=== PATIENT | female | born 1990 | race African-American/Black ===

== ENCOUNTER 2016-06-17 16:04 | Emergency (ER) | payer OTHER ==
[~2016-06-17 16:04] MED LIST: ADVI200C5 PO; MILKSUS PO
[2016-06-17] MEDS ORDERED: METHOCARBAMOL 500 MG TAB As Ordered ONE (16:22)
[2016-06-17] MEDS ORDERED: predniSONE 20 MG TAB As Ordered ONE (16:22)
[2016-06-17] MEDS ORDERED: ACETAMINOPH W/CODEINE #3 TAB UD As Ordered ONE (16:22)
--- NOTE | 2016-06-17 17:05 | REP ---
Clinical: Pain and swelling. Comparison: 01/19/2016 . Technique: AP, lateral, bilateral oblique, and coned-down views. Findings: Alignment and lordosis is maintained. The vertebral bodies including transverse process and spinous processes are intact and normal. There is no evidence for acute fracture / compression injury or subluxation. No evidence for spondylolysis or spondylolisthesis. No significant degenerative change is noted. Impression: Normal lumbosacral spine radiograph series. Signed by Yamil Anderson MD 06/17/2016 04:57 P
--- NOTE | 2016-06-17 17:45 | EDDOCDS ---
Physician Documentation [facility] Name: Bella Hudson Age: 26 yrs Sex: Female : 1990 Arrival Date: 06/17/2016 Time: 16:04 Bed PR Private MD: Trevor Dorsey G Disposition: 06/17/16 17:22 Discharged to Home/Self Care. Impression: Low back pain, Sciatica, left side. - Condition is Stable. - Discharge Instructions: Back Pain, Adult, Sciatica. - Prescriptions for Robaxin 500 mg Oral Tablet - take 2 tablet by ORAL route every 6 hours As needed; 40 tablet. Tylenol- Codeine #3 300-30 mg Oral Tablet - take 2 tablets by ORAL route every [address] YU MDD: 4 tabs; 20 tablet. Prednisone 20 mg Oral Tablet - take 2 tablet by ORAL route once daily for 5 days; 10 tablet. - Medication Reconciliation, Local Pharmacy Hours, Work Release Form - 4 day form. - Follow up: Trevor Dorsey; When: 2 - 3 days; Reason: Recheck today's complaints, Continuance of care. - Problem is new. - Symptoms have improved. Historical: - Allergies: no known allergies; - Home Meds: 1. Lexapro 20 mg Oral tab 1 tab once daily 2. baclofen 10 mg Oral tab 1 tab 3 times per day 3. Lidoderm 5 % Topical ptmd 1 patch once daily 4. trazodone 50 mg Oral tab 1 tab 3 times per day as needed 5. Flonase 50 mcg/actuation Nasal spsn 1 spray 2 times per day 6. Adderall XR 15 mg Oral cp24 1 cap once daily 7. Vitamin D 5000 po weekly on Sunday 01817 units weekly 8. Gabapentin Unknown Oral 3 times per day - PMHx: ADHD; Anemia; Anxiety; Depression; Disc Herniation L3,4,5; Enlarged Thyroid; - PSHx: Tubal ligation (October 06, 2013); - Social history: Smoking status: Patient uses tobacco products, light tobacco smoker. No barriers to communication noted, The patient speaks fluent Sami, Speaks appropriately for age. - Family history: Not pertinent. - : The pt / caregiver states he / she is not on anticoagulants. Home medication list is obtained from the patient. - Exposure Risk Screening:: None identified. 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 5 in. (165.10 cm); Pain 10/10; 17:42 BP 109 / 65; Pulse 76; Resp 16; Pulse Ox 100% on R/A; Pain 8/10; mlb1 16:06 Body Mass Index 25.79 (70.31 kg, 165.10 cm) cmb MDM: 16:19 Acetaminophen-Codeine 300 mg-30 mg 2 tabs PO once ordered. ck7 16:19 Methocarbamol 1 grams PO once ordered. ck7 16:19 predniSONE 40 mg PO once; administer with food or milk ordered. ck7 16:19 UCG by Nursing ordered. ck7 16:20 Spine. Lumbosacral, Complete Ordered. EDMS 16:20 UA Ordered. EDMS 17:05 UA Reviewed. ck7 17:18 Spine. Lumbosacral, Complete Reviewed. ck7 17:32 Financial registration complete. zo 17:39 [facility] Payment Agreement was scanned into [employer] and attached to record. [email or web address] Point of Care Testing: Urine : 16:29 hCG Reading: Negative; Control Reading: Positive; sew Ranges: Administered Medications: 16:30 Drug: Acetaminophen-Codeine 2 tabs [acetaminophen 300 mg-codeine 30 mg tablet (2 tabs)] mlb1 Route: PO; 16:30 Drug: Methocarbamol 1 grams [methocarbamol 500 mg tablet (2 tabs)] Route: PO; mlb1 16:30 Drug: predniSONE 40 mg [prednisone 20 mg tablet (2 tabs)] Route: PO; mlb1 Signatures: Dispatcher [id number] EDMS Osbaldo Mayer RN RN mlb1 Castro Francis Christopher, BERNADINE-C RPA-CckSaima Jean, Reg Reg [email or web address] The chart was reviewed and I authenticate all verbal orders and agree with the evaluation and treatment provided.Attachments: 17:39 [facility] Payment Agreement [email or web address] MTDD
--- NOTE | 2016-06-17 17:45 | EDDOCDS ---
Nurse's Notes [facility] Name: Bella Hudson Age: 26 yrs Sex: Female : 1990 Arrival Date: 06/17/2016 Time: 16:04 Bed PR Private MD: Trevor Dorsey G Diagnosis: Low back pain;Sciatica, left side Presentation: 06/17 16:07 Presenting complaint: Patient states: Low back pain radiating to left leg reports mlb1 tingling in toes and nausea states pain began today worse after getting out of shower this pm. Adult Sepsis Screening: The patient does not have new or worsening altered mentation. Patient's respiratory rate is less than 22. Systolic blood pressure is greater than 100. Patient has a qSOFA score of 0- Negative Sepsis Screen. Suicide/Homicide risk assessment- the patient denies having any suicidal and/or homicidal ideations and does not present with any other emotional, behavioral or mental health complaints. 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 Transition of care: patient was not received from another setting of care. 16:07 Acuity: ANN Level 4 mlb1 16:07 Method Of Arrival: Walkin/Carried/Asstd mlb1 Triage Assessment: 16:11 General: Appears uncomfortable, Behavior is appropriate for age, cooperative. Pain: mlb1 Location: low back area Pain currently is 10 out of 10 on a pain scale. Pain radiates to left leg. HIV screening NA for this visit Offered previously. 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 Lexapro 20 mg Oral tab 1 tab once daily 2. baclofen 10 mg Oral tab 1 tab 3 times per day 3. Lidoderm 5 % Topical ptmd 1 patch once daily 4. trazodone 50 mg Oral tab 1 tab 3 times per day as needed 5. Flonase 50 mcg/actuation Nasal spsn 1 spray 2 times per day 6. Adderall XR 15 mg Oral cp24 1 cap once daily 7. Vitamin D 5000 po weekly on Sunday 55240 units weekly 8. Gabapentin Unknown Oral 3 times per day - PMHx: ADHD; Anemia; Anxiety; Depression; Disc Herniation L3,4,5; Enlarged Thyroid; - PSHx: Tubal ligation (October 06, 2013); - Social history: Smoking status: Patient uses tobacco products, light tobacco smoker. No barriers to communication noted, The patient speaks fluent Mosotho, Speaks appropriately for age. - Family history: Not pertinent. - : The pt / caregiver states he / she is not on anticoagulants. Home medication list is obtained from the patient. - Exposure Risk Screening:: None identified. Screenin:37 Screening information is obtained from the patient. Fall risk: No risks identified. mlb1 Assistance ADL's: requires no assistance with activities of daily living. Abuse/DV Screen: The patient / caregiver reports he/she is: not in a situation that causes fear, pain or injury. Nutritional screening: No deficits noted. Advance Directives: Currently, there is no health care proxy. home support is adequate. Assessment: 17:36 General: Appears in no apparent distress, Behavior is appropriate for age, cooperative. mlb1 Pain: Location: low back area Pain currently is 8 out of 10 on a pain scale. Pain radiates to left leg. Respiratory: No deficits noted. Musculoskeletal: Range of motion intact in all extremities. Vital Signs: 16:06 BP 127 / 73; Pulse 97; Resp 16; Temp 98.1(O); Pulse Ox 100% ; Weight 70.31 kg; Height 5 cmb ft. 5 in. (165.10 cm); Pain 10/10; 17:42 BP 109 / 65; Pulse 76; Resp 16; Pulse Ox 100% on R/A; Pain 8/10; mlb1 16:06 Body Mass Index 25.79 (70.31 kg, 165.10 cm) b Vitals: 16:06 Log In Time: June 17, 2016 at 16:04. b ED Course: 16:05 Patient visited by Mary Boles. cmb 16:05 Patient moved to Waiting cmb 16:06 Trevor Dorsey is Private Physician. cmb 16:07 Patient moved to Pre RCE cmb 16:08 Triage Initiated mlb1 16:11 Patient visited by Osbaldo Mayer RN. mlb1 16:11 Patient moved to Triage 2 mlb1 16:12 [facility] ck7 16:12 Gio Dodge MD is Attending Physician. ck7 16:12 Patient visited by Naun Bains RPA-C. ck7 16:28 UA Sent. sew 16:29 Patient visited by Florina Carvalho. sew 16:29 Patient moved to TR2 sew 17:05 Patient visited by Naun Bains RPA-C. ck7 17:14 Spine. Lumbosacral, Complete Returned. EDMS 17:21 Trevor Dorsey is Referral Physician. ck7 17:27 Patient moved to mlb1 17:39 [facility] Payment Agreement was scanned into [employer] and attached to record. [email or web address] 17:40 No IV's were initiated during this patient's visit. No procedures done that require mlb1 assistance. 17:42 The patient / caregiver is instructed regarding the plan of care and ED course. mlb1 17:45 Patient visited by Osbaldo Mayer RN. mlb1 Administered Medications: 16:30 Drug: Acetaminophen-Codeine 2 tabs [acetaminophen 300 mg-codeine 30 mg tablet (2 tabs)] mlb1 Route: PO; 16:30 Drug: Methocarbamol 1 grams [methocarbamol 500 mg tablet (2 tabs)] Route: PO; mlb1 16:30 Drug: predniSONE 40 mg [prednisone 20 mg tablet (2 tabs)] Route: PO; mlb1 Point of Care Testing: Urine : 16:29 hCG Reading: Negative; Control Reading: Positive; sew Ranges: Order Results: Lab Order: UA; SPEC'M 06/17/16 16:25 Test: APPEARANCE, URINE; Value: HAZY; Range: CLEAR; Status: F Test: COLOR, URINE; Value: YELLOW; Range: YELLOW; Status: F Test: PH,URINE; Value: 5.0; Range: 5.0-9.0; Units: UNITS; Status: F Test: SPECIFIC GRAVITY URINE AUTO; Value: 1.032; Range: 1.002-1.035; Status: F Test: PROTEIN, URINE AUTO; Value: NEGATIVE; Range: NEGATIVE; Units: mg/dL; Status: F Test: GLUCOSE, URINE (UA) AUTO; Value: NEGATIVE; Range: NEGATIVE; Units: mg/dL; Status: F Test: KETONE, URINE AUTO; Value: TRACE; Range: NEGATIVE; Abnormal: Above high normal; Units: mg/dL; Status: F Test: UROBILINOGEN, URINE AUTO; Value: 0.2; Range: 0.0-2.0; Units: mg/dL; Status: F Test: BILIRUBIN, URINE AUTO; Value: NEGATIVE; Range: NEGATIVE; Status: F Test: NITRITE, URINE AUTO; Value: NEGATIVE; Range: NEGATIVE; Status: F Test: LEUKOCYTE ESTERASE, URINE AUTO; Value: 2+; Range: NEGATIVE; Abnormal: Above high normal; Status: F Test: BLOOD, URINE BLOOD; Value: NEGATIVE; Range: NEGATIVE; Status: F Test: WBC, URINE AUTO; Value: 5; Range: 0-3; Abnormal: Above high normal; Units: /HPF; Status: F Test: RBC, URINE AUTO; Value: 2; Range: 0-3; Units: /HPF; Status: F Test: BACTERIA, URINE AUTO; Value: NEGATIVE; Range: NEGATIVE; Status: F Test: SQUAMOUS EPITHELIAL CELL UR AU; Value: 4; Range: 0-6; Units: /HPF; Status: F Test: MUCUS, URINE; Value: LARGE; Range: NEGATIVE; Status: F Test: HYALINE CAST, URINE AUTO; Value: 0; Range: 0-1; Units: /LPF; Status: F Radiology Order: Spine. Lumbosacral, Complete Test: Spine. Lumbosacral, Complete REASON FOR EXAMINATION: Deformity/Swelling; Clinical: Pain and swelling.; ; Comparison: 01/19/2016 .; ; Technique: AP, lateral, bilateral oblique, and coned-down views.; ; Findings: Alignment and lordosis is maintained. The vertebral bodies including; transverse process and spinous processes are intact and normal. There is no; evidence for acute fracture / compression injury or subluxation. No evidence for; spondylolysis or spondylolisthesis. No significant degenerative change is; noted.; ; Impression:; Normal lumbosacral spine radiograph series.; ; ; Signed by; Yamil Anderson MD 06/17/2016 04:57 P; Outcome: 17:22 Discharge ordered by Provider. ck7 17:40 Discharge Assessment: Patient awake, alert and oriented x 3. No cognitive and/or mlb1 functional deficits noted. Patient verbalized understanding of disposition instructions. patient administered narcotics - no. Discharge Assessment: patient administered narcotics - yes. Pt provided with safe discharge. The following High Risk Discharge criteria are identified: None. Discharged to home ambulatory. Condition: good. Discharge instructions given to patient, Instructed on discharge instructions, follow up and referral plans. medication usage, no driving heavy equipment, Demonstrated understanding of instructions, medications, Pt was receptive of discharge instructions/ teaching. Prescriptions given X 3, Work note provided to patient. No special radiology studies were completed. Property sent home with patient. 17:45 Patient left the ED. mlb1 Signatures: Dispatcher [employer] EDWV Osbaldo Mayer RN RN mlb1 Mary Boles Christopher, RPA-C RPA-Cck7 Deven, Saima Kitchen, Reg Reg [email or web address] MTDD
--- NOTE | 2016-06-19 18:46 | EDDOCDS ---
Physician Documentation [facility] Name: Bella Hudson Age: 26 yrs Sex: Female : 1990 Arrival Date: 06/17/2016 Time: 16:04 Bed PR Private MD: Trevor Dorsey G Disposition: 06/17/16 17:22 Discharged to Home/Self Care. Impression: Low back pain, Sciatica, left side. - Condition is Stable. - Discharge Instructions: Back Pain, Adult, Sciatica. - Prescriptions for Robaxin 500 mg Oral Tablet - take 2 tablet by ORAL route every 6 hours As needed; 40 tablet. Tylenol- Codeine #3 300-30 mg Oral Tablet - take 2 tablets by ORAL route every [address] YU MDD: 4 tabs; 20 tablet. Prednisone 20 mg Oral Tablet - take 2 tablet by ORAL route once daily for 5 days; 10 tablet. - Medication Reconciliation, Local Pharmacy Hours, Work Release Form - 4 day form. - Follow up: Trevor Dorsey; When: 2 - 3 days; Reason: Recheck today's complaints, Continuance of care. - Problem is new. - Symptoms have improved. Historical: - Allergies: no known allergies; - Home Meds: 1. Lexapro 20 mg Oral tab 1 tab once daily 2. baclofen 10 mg Oral tab 1 tab 3 times per day 3. Lidoderm 5 % Topical ptmd 1 patch once daily 4. trazodone 50 mg Oral tab 1 tab 3 times per day as needed 5. Flonase 50 mcg/actuation Nasal spsn 1 spray 2 times per day 6. Adderall XR 15 mg Oral cp24 1 cap once daily 7. Vitamin D 5000 po weekly on Sunday 86703 units weekly 8. Gabapentin Unknown Oral 3 times per day - PMHx: ADHD; Anemia; Anxiety; Depression; Disc Herniation L3,4,5; Enlarged Thyroid; - PSHx: Tubal ligation (October 06, 2013); - Social history: Smoking status: Patient uses tobacco products, light tobacco smoker. No barriers to communication noted, The patient speaks fluent Portuguese, Speaks appropriately for age. - Family history: Not pertinent. - : The pt / caregiver states he / she is not on anticoagulants. Home medication list is obtained from the patient. - Exposure Risk Screening:: None identified. 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 5 in. (165.10 cm); Pain 10/10; 17:42 BP 109 / 65; Pulse 76; Resp 16; Pulse Ox 100% on R/A; Pain 8/10; mlb1 16:06 Body Mass Index 25.79 (70.31 kg, 165.10 cm) cmb MDM: 16:19 Acetaminophen-Codeine 300 mg-30 mg 2 tabs PO once ordered. ck7 16:19 Methocarbamol 1 grams PO once ordered. ck7 16:19 predniSONE 40 mg PO once; administer with food or milk ordered. ck7 16:19 UCG by Nursing ordered. ck7 16:20 Spine. Lumbosacral, Complete Ordered. EDMS 16:20 UA Ordered. EDMS 17:05 UA Reviewed. ck7 17:18 Spine. Lumbosacral, Complete Reviewed. ck7 17:32 Financial registration complete. zo 17:39 [facility] Payment Agreement was scanned into [employer] and attached to record. [email or web address] 06/18 08:53 T-Sheet-- Draft Copy was scanned into [employer] and attached to record. [facility] Point of Care Testing: Urine : 06/17 16:29 hCG Reading: Negative; Control Reading: Positive; sew Ranges: Administered Medications: 16:30 Drug: Acetaminophen-Codeine 2 tabs [acetaminophen 300 mg-codeine 30 mg tablet (2 tabs)] mlb1 Route: PO; 16:30 Drug: Methocarbamol 1 grams [methocarbamol 500 mg tablet (2 tabs)] Route: PO; mlb1 16:30 Drug: predniSONE 40 mg [prednisone 20 mg tablet (2 tabs)] Route: PO; mlb1 Signatures: Dispatcher [employer] EDOsbaldo Carrillo RN RN mlb1 Castro Francis Christopher, RPA-C RPA-Cck7 Saima Vela, Reg Reg [email or web address] [facility] The chart was reviewed and I authenticate all verbal orders and agree with the evaluation and treatment provided.Attachments: 17:39 [facility] Payment Agreement [email or web address] 06/18 08:53 T-Sheet-- Draft Copy [facility] Chart Complete MTDD
--- NOTE | 2016-06-19 18:46 | EDDOCDS ---
Nurse's Notes [facility] Name: Bella Hudson Age: 26 yrs Sex: Female : 1990 Arrival Date: 06/17/2016 Time: 16:04 Bed PR Private MD: Trevor Dorsey G Diagnosis: Low back pain;Sciatica, left side Presentation: 06/17 16:07 Presenting complaint: Patient states: Low back pain radiating to left leg reports mlb1 tingling in toes and nausea states pain began today worse after getting out of shower this pm. Adult Sepsis Screening: The patient does not have new or worsening altered mentation. Patient's respiratory rate is less than 22. Systolic blood pressure is greater than 100. Patient has a qSOFA score of 0- Negative Sepsis Screen. Suicide/Homicide risk assessment- the patient denies having any suicidal and/or homicidal ideations and does not present with any other emotional, behavioral or mental health complaints. 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 Transition of care: patient was not received from another setting of care. 16:07 Acuity: ANN Level 4 mlb1 16:07 Method Of Arrival: Walkin/Carried/Asstd mlb1 Triage Assessment: 16:11 General: Appears uncomfortable, Behavior is appropriate for age, cooperative. Pain: mlb1 Location: low back area Pain currently is 10 out of 10 on a pain scale. Pain radiates to left leg. HIV screening NA for this visit Offered previously. 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 Lexapro 20 mg Oral tab 1 tab once daily 2. baclofen 10 mg Oral tab 1 tab 3 times per day 3. Lidoderm 5 % Topical ptmd 1 patch once daily 4. trazodone 50 mg Oral tab 1 tab 3 times per day as needed 5. Flonase 50 mcg/actuation Nasal spsn 1 spray 2 times per day 6. Adderall XR 15 mg Oral cp24 1 cap once daily 7. Vitamin D 5000 po weekly on Sunday 75598 units weekly 8. Gabapentin Unknown Oral 3 times per day - PMHx: ADHD; Anemia; Anxiety; Depression; Disc Herniation L3,4,5; Enlarged Thyroid; - PSHx: Tubal ligation (October 06, 2013); - Social history: Smoking status: Patient uses tobacco products, light tobacco smoker. No barriers to communication noted, The patient speaks fluent Welsh, Speaks appropriately for age. - Family history: Not pertinent. - : The pt / caregiver states he / she is not on anticoagulants. Home medication list is obtained from the patient. - Exposure Risk Screening:: None identified. Screenin:37 Screening information is obtained from the patient. Fall risk: No risks identified. mlb1 Assistance ADL's: requires no assistance with activities of daily living. Abuse/DV Screen: The patient / caregiver reports he/she is: not in a situation that causes fear, pain or injury. Nutritional screening: No deficits noted. Advance Directives: Currently, there is no health care proxy. home support is adequate. Assessment: 17:36 General: Appears in no apparent distress, Behavior is appropriate for age, cooperative. mlb1 Pain: Location: low back area Pain currently is 8 out of 10 on a pain scale. Pain radiates to left leg. Respiratory: No deficits noted. Musculoskeletal: Range of motion intact in all extremities. Vital Signs: 16:06 BP 127 / 73; Pulse 97; Resp 16; Temp 98.1(O); Pulse Ox 100% ; Weight 70.31 kg; Height 5 cmb ft. 5 in. (165.10 cm); Pain 10/10; 17:42 BP 109 / 65; Pulse 76; Resp 16; Pulse Ox 100% on R/A; Pain 8/10; mlb1 16:06 Body Mass Index 25.79 (70.31 kg, 165.10 cm) b Vitals: 16:06 Log In Time: June 17, 2016 at 16:04. b ED Course: 16:05 Patient visited by Mary Boles. cmb 16:05 Patient moved to Waiting cmb 16:06 Trevor Dorsey is Private Physician. cmb 16:07 Patient moved to Pre RCE cmb 16:08 Triage Initiated mlb1 16:11 Patient visited by Osbaldo Mayer RN. mlb1 16:11 Patient moved to Triage 2 mlb1 16:12 [facility] ck7 16:12 Gio Dodge MD is Attending Physician. ck7 16:12 Patient visited by Naun Bains RPA-C. ck7 16:28 UA Sent. sew 16:29 Patient visited by Florina Carvalho. sew 16:29 Patient moved to TR2 sew 17:05 Patient visited by Naun Bains RPA-C. ck7 17:14 Spine. Lumbosacral, Complete Returned. EDMS 17:21 Trevor Dorsey is Referral Physician. ck7 17:27 Patient moved to mlb1 17:39 [facility] [place] Agreement was scanned into [employer] and attached to record. [email or web address] 17:40 No IV's were initiated during this patient's visit. No procedures done that require mlb1 assistance. 17:42 The patient / caregiver is instructed regarding the plan of care and ED course. mlb1 17:45 Patient visited by Osbaldo Mayer RN. mlb1 06/18 08:53 T-Sheet-- Draft Copy was scanned into [employer] and attached to record. [facility] Administered Medications: 06/17 16:30 Drug: Acetaminophen-Codeine 2 tabs [acetaminophen 300 mg-codeine 30 mg tablet (2 tabs)] mlb1 Route: PO; 16:30 Drug: Methocarbamol 1 grams [methocarbamol 500 mg tablet (2 tabs)] Route: PO; mlb1 16:30 Drug: predniSONE 40 mg [prednisone 20 mg tablet (2 tabs)] Route: PO; mlb1 Point of Care Testing: Urine : 16:29 hCG Reading: Negative; Control Reading: Positive; sew Ranges: Order Results: Lab Order: UA; SPEC'M 06/17/16 16:25 Test: APPEARANCE, URINE; Value: HAZY; Range: CLEAR; Status: F Test: COLOR, URINE; Value: YELLOW; Range: YELLOW; Status: F Test: PH,URINE; Value: 5.0; Range: 5.0-9.0; Units: UNITS; Status: F Test: SPECIFIC GRAVITY URINE AUTO; Value: 1.032; Range: 1.002-1.035; Status: F Test: PROTEIN, URINE AUTO; Value: NEGATIVE; Range: NEGATIVE; Units: mg/dL; Status: F Test: GLUCOSE, URINE (UA) AUTO; Value: NEGATIVE; Range: NEGATIVE; Units: mg/dL; Status: F Test: KETONE, URINE AUTO; Value: TRACE; Range: NEGATIVE; Abnormal: Above high normal; Units: mg/dL; Status: F Test: UROBILINOGEN, URINE AUTO; Value: 0.2; Range: 0.0-2.0; Units: mg/dL; Status: F Test: BILIRUBIN, URINE AUTO; Value: NEGATIVE; Range: NEGATIVE; Status: F Test: NITRITE, URINE AUTO; Value: NEGATIVE; Range: NEGATIVE; Status: F Test: LEUKOCYTE ESTERASE, URINE AUTO; Value: 2+; Range: NEGATIVE; Abnormal: Above high normal; Status: F Test: BLOOD, URINE BLOOD; Value: NEGATIVE; Range: NEGATIVE; Status: F Test: WBC, URINE AUTO; Value: 5; Range: 0-3; Abnormal: Above high normal; Units: /HPF; Status: F Test: RBC, URINE AUTO; Value: 2; Range: 0-3; Units: /HPF; Status: F Test: BACTERIA, URINE AUTO; Value: NEGATIVE; Range: NEGATIVE; Status: F Test: SQUAMOUS EPITHELIAL CELL UR AU; Value: 4; Range: 0-6; Units: /HPF; Status: F Test: MUCUS, URINE; Value: LARGE; Range: NEGATIVE; Status: F Test: HYALINE CAST, URINE AUTO; Value: 0; Range: 0-1; Units: /LPF; Status: F Radiology Order: Spine. Lumbosacral, Complete Test: Spine. Lumbosacral, Complete REASON FOR EXAMINATION: Deformity/Swelling; Clinical: Pain and swelling.; ; Comparison: 01/19/2016 .; ; Technique: AP, lateral, bilateral oblique, and coned-down views.; ; Findings: Alignment and lordosis is maintained. The vertebral bodies including; transverse process and spinous processes are intact and normal. There is no; evidence for acute fracture / compression injury or subluxation. No evidence for; spondylolysis or spondylolisthesis. No significant degenerative change is; noted.; ; Impression:; Normal lumbosacral spine radiograph series.; ; ; Signed by; Yamil Anderson MD 06/17/2016 04:57 P; Outcome: 17:22 Discharge ordered by Provider. ck7 17:40 Discharge Assessment: Patient awake, alert and oriented x 3. No cognitive and/or mlb1 functional deficits noted. Patient verbalized understanding of disposition instructions. patient administered narcotics - no. Discharge Assessment: patient administered narcotics - yes. Pt provided with safe discharge. The following High Risk Discharge criteria are identified: None. Discharged to home ambulatory. Condition: good. Discharge instructions given to patient, Instructed on discharge instructions, follow up and referral plans. medication usage, no driving heavy equipment, Demonstrated understanding of instructions, medications, Pt was receptive of discharge instructions/ teaching. Prescriptions given X 3, Work note provided to patient. No special radiology studies were completed. Property sent home with patient. 17:45 Patient left the ED. mlb1 Signatures: Dispatcher [employer] EDMN Osbaldo Mayer RN RN mlb1 Mary Boles Christopher, RPA-C RPA-Cck7 Florina Carvalho Kimberly, Reg Reg [email or web address] Florina Luis Chart Complete MTDD
--- NOTE | 2016-06-19 18:46 | EDDOCDS ---
Physician Documentation [facility] Name: Bella Hudson Age: 26 yrs Sex: Female : 1990 Arrival Date: 06/17/2016 Time: 16:04 Bed PR Private MD: Trevor Dorsey G Disposition: 06/17/16 17:22 Discharged to Home/Self Care. Impression: Low back pain, Sciatica, left side. - Condition is Stable. - Discharge Instructions: Back Pain, Adult, Sciatica. - Prescriptions for Robaxin 500 mg Oral Tablet - take 2 tablet by ORAL route every 6 hours As needed; 40 tablet. Tylenol- Codeine #3 300-30 mg Oral Tablet - take 2 tablets by ORAL route every [address] YU MDD: 4 tabs; 20 tablet. Prednisone 20 mg Oral Tablet - take 2 tablet by ORAL route once daily for 5 days; 10 tablet. - Medication Reconciliation, Local Pharmacy Hours, Work Release Form - 4 day form. - Follow up: Trevor Dorsey; When: 2 - 3 days; Reason: Recheck today's complaints, Continuance of care. - Problem is new. - Symptoms have improved. Historical: - Allergies: no known allergies; - Home Meds: 1. Lexapro 20 mg Oral tab 1 tab once daily 2. baclofen 10 mg Oral tab 1 tab 3 times per day 3. Lidoderm 5 % Topical ptmd 1 patch once daily 4. trazodone 50 mg Oral tab 1 tab 3 times per day as needed 5. Flonase 50 mcg/actuation Nasal spsn 1 spray 2 times per day 6. Adderall XR 15 mg Oral cp24 1 cap once daily 7. Vitamin D 5000 po weekly on Sunday 86630 units weekly 8. Gabapentin Unknown Oral 3 times per day - PMHx: ADHD; Anemia; Anxiety; Depression; Disc Herniation L3,4,5; Enlarged Thyroid; - PSHx: Tubal ligation (October 06, 2013); - Social history: Smoking status: Patient uses tobacco products, light tobacco smoker. No barriers to communication noted, The patient speaks fluent Bengali, Speaks appropriately for age. - Family history: Not pertinent. - : The pt / caregiver states he / she is not on anticoagulants. Home medication list is obtained from the patient. - Exposure Risk Screening:: None identified. NURSE LICENSED PRACTICAL: 06/17 16:11 LMP 05/24/2016 mlb1 Vital Signs: 16:06 BP 127 / 73; Pulse 97; Resp 16; Temp 98.1(O); Pulse Ox 100% ; Weight 70.31 kg / 155.01 cmb lbs; Height 5 ft. 5 in. (165.10 cm); Pain 10/10; 17:42 BP 109 / 65; Pulse 76; Resp 16; Pulse Ox 100% on R/A; Pain 8/10; mlb1 16:06 Body Mass Index 25.79 (70.31 kg, 165.10 cm) cmb MDM: 16:19 Acetaminophen-Codeine 300 mg-30 mg 2 tabs PO once ordered. ck7 16:19 Methocarbamol 1 grams PO once ordered. ck7 16:19 predniSONE 40 mg PO once; administer with food or milk ordered. ck7 16:19 UCG by Nursing ordered. ck7 16:20 Spine. Lumbosacral, Complete Ordered. EDMS 16:20 UA Ordered. EDMS 17:05 UA Reviewed. ck7 17:18 Spine. Lumbosacral, Complete Reviewed. ck7 17:32 Financial registration complete. zo 17:39 [facility] Payment Agreement was scanned into [employer] and attached to record. [email or web address] 06/18 08:53 T-Sheet-- Draft Copy was scanned into [employer] and attached to record. [facility] Point of Care Testing: Urine : 06/17 16:29 hCG Reading: Negative; Control Reading: Positive; sew Ranges: Administered Medications: 16:30 Drug: Acetaminophen-Codeine 2 tabs [acetaminophen 300 mg-codeine 30 mg tablet (2 tabs)] mlb1 Route: PO; 16:30 Drug: Methocarbamol 1 grams [methocarbamol 500 mg tablet (2 tabs)] Route: PO; mlb1 16:30 Drug: predniSONE 40 mg [prednisone 20 mg tablet (2 tabs)] Route: PO; mlb1 Signatures: Dispatcher [employer] EDOsbaldo Carrillo RN RN mlb1 Castro Francis Christopher, RPA-C RPA-Cck7 Saima Vela, Reg Reg [email or web address] [facility] The chart was reviewed and I authenticate all verbal orders and agree with the evaluation and treatment provided.Attachments: 17:39 [facility] Payment Agreement [email or web address] 06/18 08:53 T-Sheet-- Draft Copy [facility] Chart Complete MTDD
== END 2016-06-17 17:45 | disposition home or self-care (01) ==
LOC: M ED 16:04
DX: M54.32 Sciatica, left side (principal); F90.9 Attention-deficit hyperactivity disorder, unspecified type; D64.9 Anemia, unspecified; F41.9 Anxiety disorder, unspecified; F32.9 Major depressive disorder, single episode, unspecified; E04.9 Nontoxic goiter, unspecified; M51.26 Other intervertebral disc displacement, lumbar region; Z72.0 Tobacco use; Z79.899 Other long term (current) drug therapy

== ENCOUNTER → 2016-07-28 | Outpatient (CLI) | payer MEDICAID | LOC: M OUTALCOH 08:13 | PROVIDERS: ATTEND Psychiatry & Neurology Psychiatry | DX: F11.20 Opioid dependence, uncomplicated (principal); F15.20 Other stimulant dependence, uncomplicated ==

== ENCOUNTER → 2016-08-09 | Outpatient (CLI) | payer MEDICAID | LOC: M LAB 16:32 | PROVIDERS: ATTEND Psychiatry & Neurology Psychiatry | DX: Z13.9 Encounter for screening, unspecified (principal); F11.20 Opioid dependence, uncomplicated; F15.20 Other stimulant dependence, uncomplicated ==

== ENCOUNTER 2016-08-17 11:00 | Outpatient (RCR) | payer MEDICAID | END 2016-08-20 | LOC: M OUTALCOH 11:00 | PROVIDERS: ATTEND Psychiatry & Neurology Psychiatry | DX: F11.20 Opioid dependence, uncomplicated (principal); F15.20 Other stimulant dependence, uncomplicated; F17.200 Nicotine dependence, unspecified, uncomplicated ==

== ENCOUNTER → 2016-09-20 | Outpatient (RCR) | payer MEDICAID | LOC: M OUTALCOH 08-24 14:17 | PROVIDERS: ATTEND Psychiatry & Neurology Psychiatry | DX: F11.20 Opioid dependence, uncomplicated (principal); F15.20 Other stimulant dependence, uncomplicated; F17.200 Nicotine dependence, unspecified, uncomplicated ==

== ENCOUNTER → 2016-10-20 | Outpatient (RCR) | payer MEDICAID | LOC: M OUTALCOH 09-22 10:45 | PROVIDERS: ATTEND Psychiatry & Neurology Psychiatry | DX: F11.20 Opioid dependence, uncomplicated (principal); F15.20 Other stimulant dependence, uncomplicated; F17.200 Nicotine dependence, unspecified, uncomplicated ==

== ENCOUNTER 2016-11-17 13:00 | Outpatient (RCR) | payer MEDICAID | END 2016-11-20 | LOC: M OUTALCOH 13:00 | PROVIDERS: ATTEND Psychiatry & Neurology Psychiatry | DX: F11.20 Opioid dependence, uncomplicated (principal); F15.20 Other stimulant dependence, uncomplicated; F17.200 Nicotine dependence, unspecified, uncomplicated ==

== ENCOUNTER 2016-12-18 14:00 | Outpatient (RCR) | payer MEDICAID | END 2016-12-21 | LOC: M OUTALCOH 14:00 | PROVIDERS: ATTEND Psychiatry & Neurology Psychiatry | DX: F11.20 Opioid dependence, uncomplicated (principal); F15.20 Other stimulant dependence, uncomplicated; F17.200 Nicotine dependence, unspecified, uncomplicated ==

== ENCOUNTER → 2017-01-08 | Outpatient (REF) | payer MEDICAID ==
[2017-01-08 13:55] LABS: BASO % 0.7 % (0.0-1.0); EOS # 0.1 K/mm3 (0.0-0.50); EOS % 2.7 % (0.0-3.0); LARGE UNSTAINED CELL # 0.1 K/mm3 (0.0-0.4); LYMPH # 1.4 K/mm3 (1.5-6.5); LYMPH % 33.9 % (24.0-44.0); MEAN CORPUSCULAR HGB CONC 34.6 g/dl (32.0-36.5); MEAN CORPUSCULAR VOLUME 86.6 fl (80.0-96.0); MONO # 0.3 K/mm3 (0.0-0.8); MONO % 6.8 % (0.0-5.0); NEUTROPHILS # 2.1 K/mm3 (1.8-7.7); NEUTROPHILS % 52.9 % (36.0-66.0); PLATELET COUNT, AUTOMATED 197 k/mm3 (150-450); RED CELL DISTRIBUTION WIDTH 12.8 % (11.5-14.5)
[2017-01-08 14:12] LABS: ALBUMIN 4.1 GM/DL (3.2-5.2); ALBUMIN/GLOBULIN RATIO 1.21 (1.00-1.93); ALKALINE PHOSPHATASE 65 U/L (45-117); ALT/SGPT 29 U/L (12-78); ANION GAP 7 MEQ/L (8-16); AST/SGOT 25 U/L (15-37); BILIRUBIN,TOTAL 1.4 MG/DL (0.2-1.0); BLOOD UREA NITROGEN 7 MG/DL (7-18); CARBON DIOXIDE LEVEL 28 MEQ/L (21-32); CHLORIDE LEVEL 106 MEQ/L (98-107); CREATININE FOR GFR 0.63 MG/DL (0.55-1.02); GLOMERULAR FILTRATION RATE > 60.0 (>60); GLUCOSE, FASTING 53 MG/DL (70-105); POTASSIUM SERUM 4.1 MEQ/L (3.5-5.1); SODIUM LEVEL 141 MEQ/L (136-145); TOTAL PROTEIN 7.5 GM/DL (6.4-8.2)
[2017-01-08 14:28] LABS: ERYTHROCYTE SEDIMENTATION RATE 9 mm/hr (0-20)
[2017-01-08 14:42] LABS: FOLATE 22.1 NG/ML; VITAMIN B12 LEVEL 1221 PG/ML
[2017-01-11 13:21] LABS: ALBUMIN % 59.6 % (55.8-66.1); GAMMA GLOBULIN % 14.9 % (11.1-18.8)
[2017-01-11 13:23] LABS: ALBUMIN 4.47 GM/DL (3.29-5.55)
[2017-01-12 00:55] LABS: SJOGREN'S ANTI SS-A <0.2 AI (0.0-0.9); SJOGREN'S ANTI SS-B <0.2 AI (0.0-0.9); VITAMIN E LEVEL 8.5 mg/L (5.3-16.8)
== END ==
LOC: M LABNEURO 13:06
PROVIDERS: ATTEND Psychiatry & Neurology Neurology
DX: G62.9 Polyneuropathy, unspecified (principal)

== ENCOUNTER 2017-01-16 10:00 | Outpatient (RCR) | payer MEDICAID | END 2017-01-20 | LOC: M OUTALCOH 10:00 | PROVIDERS: ATTEND Psychiatry & Neurology Psychiatry | DX: F11.20 Opioid dependence, uncomplicated (principal); F15.20 Other stimulant dependence, uncomplicated; F17.200 Nicotine dependence, unspecified, uncomplicated ==

== ENCOUNTER → 2017-01-16 | Outpatient (REF) | payer MEDICAID | LOC: M OUTALCOH 13:53 | PROVIDERS: ATTEND Psychiatry & Neurology Psychiatry | DX: F11.20 Opioid dependence, uncomplicated (principal) ==

== ENCOUNTER 2017-03-19 16:00 | Outpatient (RCR) | payer MEDICAID | END 2017-03-22 | LOC: M OUTALCOH 16:00 | PROVIDERS: ATTEND Psychiatry & Neurology Psychiatry | DX: F11.20 Opioid dependence, uncomplicated (principal); F15.20 Other stimulant dependence, uncomplicated; F17.200 Nicotine dependence, unspecified, uncomplicated ==

== ENCOUNTER 2017-04-13 13:53 | Outpatient (RCR) | payer MEDICAID | END 2017-04-22 | LOC: M OUTALCOH 13:53 | DX: F11.20 Opioid dependence, uncomplicated (principal); F15.20 Other stimulant dependence, uncomplicated; F17.200 Nicotine dependence, unspecified, uncomplicated ==

== ENCOUNTER 2017-05-22 10:43 | Outpatient (RCR) | payer MEDICAID | END 2017-05-23 | LOC: M OUTALCOH 10:43 | DX: F11.20 Opioid dependence, uncomplicated (principal); F15.20 Other stimulant dependence, uncomplicated; F17.200 Nicotine dependence, unspecified, uncomplicated ==

== ENCOUNTER 2017-06-05 11:02 | Outpatient (RCR) | payer MEDICAID | END 2017-06-20 | LOC: M OUTALCOH 06-19 11:00 | DX: F11.20 Opioid dependence, uncomplicated (principal); F15.20 Other stimulant dependence, uncomplicated; F17.200 Nicotine dependence, unspecified, uncomplicated ==

== ENCOUNTER 2017-07-03 10:10 | Outpatient (RCR) | payer MEDICAID | END 2017-07-21 | LOC: M OUTALCOH 07-16 10:00 | DX: F11.20 Opioid dependence, uncomplicated (principal); F15.20 Other stimulant dependence, uncomplicated; F17.200 Nicotine dependence, unspecified, uncomplicated ==

== ENCOUNTER 2017-07-25 13:20 | Outpatient (RCR) | payer MEDICAID | END 2017-08-20 | LOC: M OUTALCOH 08-06 10:00 | DX: F11.20 Opioid dependence, uncomplicated (principal); F15.20 Other stimulant dependence, uncomplicated; F17.200 Nicotine dependence, unspecified, uncomplicated ==

== ENCOUNTER 2017-08-22 15:38 | Outpatient (RCR) | payer MEDICAID | END 2017-09-20 | LOC: M OUTALCOH 15:38 | DX: F11.20 Opioid dependence, uncomplicated (principal); F15.20 Other stimulant dependence, uncomplicated; F17.200 Nicotine dependence, unspecified, uncomplicated ==

== ENCOUNTER 2018-01-26 17:05 | Emergency (ER) | payer OTHER, MEDICAID ==
[2018-01-26 17:48] LABS: HEMOGLOBIN 12.1 g/dl (12.0-15.5); MEAN CORPUSCULAR HEMOGLOBIN 29.6 pg (27.0-33.0); MEAN CORPUSCULAR HGB CONC 34.6 g/dl (32.0-36.5); MEAN CORPUSCULAR VOLUME 85.6 fl (80.0-96.0); PLATELET COUNT, AUTOMATED 178 10^3/uL (150-450); RED BLOOD COUNT 4.09 10^6/uL (4.00-5.40); RED CELL DISTRIBUTION WIDTH 12.1 % (11.5-14.5); WHITE BLOOD COUNT 4.4 10^3/uL (4.0-10.0)
[2018-01-26 18:02] LABS: AMPHETAMINES LEVEL URINE POSITIVE (NEGATIVE); BARBITURATES URINE NEGATIVE (NEGATIVE); BENZODIAZEPINES URINE NEGATIVE (NEGATIVE); CANNABINOIDS URINE POSITIVE (NEGATIVE); COCAINE METABOLITE URINE NEGATIVE (NEGATIVE); METHADONE URINE NEGATIVE (NEGATIVE); OPIATES URINE NEGATIVE (NEGATIVE); PHENCYCLIDINE URINE NEGATIVE (NEGATIVE)
[2018-01-26 18:29] LABS: ALBUMIN 3.8 GM/DL (3.2-5.2); ALBUMIN/GLOBULIN RATIO 1.19 (1.00-1.93); ALKALINE PHOSPHATASE 43 U/L (45-117); ALT/SGPT 21 U/L (12-78); ANION GAP 5 MEQ/L (8-16); AST/SGOT 18 U/L (7-37); BILIRUBIN,DIRECT 0.3 MG/DL (0.0-0.2); BILIRUBIN,TOTAL 1.2 MG/DL (0.2-1.0); BLOOD UREA NITROGEN 7 MG/DL (7-18); CALCIUM LEVEL 8.2 MG/DL (8.5-10.1); CARBON DIOXIDE LEVEL 31 MEQ/L (21-32); CHLORIDE LEVEL 105 MEQ/L (98-107); CREATININE FOR GFR 0.65 MG/DL (0.55-1.30); ETHYL ALCOHOL (ETHANOL) 0.004 % (0.000-0.010); GLOMERULAR FILTRATION RATE > 60.0 (>60); GLUCOSE, FASTING 93 MG/DL (70-100); POTASSIUM SERUM 3.6 MEQ/L (3.5-5.1); SALICYLATE LEVEL < 1.7 MG/DL (5.0-30.0); SODIUM LEVEL 141 MEQ/L (136-145)
[2018-01-26 18:30] LABS: ACETAMINOPHEN LEVEL < 2.0 UG/ML (10.0-30.0)
== END 2018-01-26 19:53 | disposition home or self-care (01) ==
LOC: M ED 17:05
DX: F33.9 Major depressive disorder, recurrent, unspecified (principal); F12.10 Cannabis abuse, uncomplicated; F90.9 Attention-deficit hyperactivity disorder, unspecified type; Z79.899 Other long term (current) drug therapy; Z79.891 Long term (current) use of opiate analgesic
CPT/HCPCS: 80320

== ENCOUNTER 2018-07-24 15:16 | Emergency (ER) | payer BC, MEDICAID, OTHER ==
[~2018-07-24] VITALS: Ht 165.1 cm; Wt 69.0 kg
[~2018-07-24 15:16] MED LIST changes: +ADDE10CA3 PO; +ADDE30CA3 PO; +MILK120011 PO; -MILKSUS PO; +SUBO8MIS SL; +VENTAER INH
[2018-07-24] MEDS ORDERED: AMPHET/DEXTR (15:22)
[2018-07-24] MEDS ORDERED: GABA600T4 PO (15:22)
[2018-07-24 16:35] LABS: BASO % 0.8 % (0.0-1.0); EOS # 0.1 10^3/uL (0.0-0.50); HEMATOCRIT 39.1 % (36.0-47.0); HEMOGLOBIN 13.5 g/dl (12.0-15.5); LYMPH # 1.9 10^3/uL (1.5-4.5); LYMPH % 36.9 % (24.0-44.0); MEAN CORPUSCULAR HEMOGLOBIN 29.6 pg (27.0-33.0); MEAN CORPUSCULAR HGB CONC 34.5 g/dl (32.0-36.5); MEAN CORPUSCULAR VOLUME 85.7 fl (80.0-96.0); MONO # 0.4 10^3/uL (0.0-0.8); MONO % 6.9 % (0.0-5.0); NEUTROPHILS # 2.7 10^3/uL (1.8-7.7); PLATELET COUNT, AUTOMATED 209 10^3/uL (150-450); RED BLOOD COUNT 4.56 10^6/uL (4.00-5.40); WHITE BLOOD COUNT 5.1 10^3/uL (4.0-10.0)
[2018-07-24 16:48] LABS: HCG, SERUM QUALITATIVE NEGATIVE (NEGATIVE)
[2018-07-24 16:50] LABS: MONO SCRN NEGATIVE (NEGATIVE)
[2018-07-24 16:58] LABS: BLOOD UREA NITROGEN 7 MG/DL (7-18); CALCIUM LEVEL 8.8 MG/DL (8.5-10.1); CARBON DIOXIDE LEVEL 31 MEQ/L (21-32); CHLORIDE LEVEL 106 MEQ/L (98-107); FREE THYROXINE INDEX 2.9 % (1.3-4.8); GLOMERULAR FILTRATION RATE > 60.0 (>60); GLUCOSE, FASTING 84 MG/DL (70-100); POTASSIUM SERUM 4.7 MEQ/L (3.5-5.1); SODIUM LEVEL 138 MEQ/L (136-145); T UPTAKE 29 % (30-39); THYROID STIMULATING HORMONE 0.546 uIU/ML (0.358-3.740)
[2018-07-24 16:58] LABS: INFLUENZA A AMPLIFICATION NEGATIVE (NEGATIVE); INFLUENZA B AMPLIFICATION NEGATIVE (NEGATIVE)
[2018-07-24 17:22] VITALS: BP 128/65
[2018-07-24] MEDS ORDERED: ZOFR4TAB16 PO (17:37)
== END 2018-07-24 17:48 | disposition home or self-care (01) ==
LOC: M ED 15:16
DX: B34.9 Viral infection, unspecified (principal); F17.200 Nicotine dependence, unspecified, uncomplicated; Z79.899 Other long term (current) drug therapy

== ENCOUNTER → 2019-04-04 | Outpatient (CLI) | payer OTHER ==
[~2019-04-04] MED LIST changes: +AMPHET/DEXTR; +GABA600T4 PO; +ZOFR4TAB16 PO
[2019-04-04 12:10] LABS: BASO % 0.5 % (0.0-1.0); EOS # 0.1 10^3/uL (0.0-0.5); EOS % 2.4 % (0.0-3.0); HEMATOCRIT 38.1 % (36.0-47.0); HEMOGLOBIN 12.9 g/dl (12.0-15.5); LYMPH # 1.6 10^3/uL (1.5-5.0); LYMPH % 42.9 % (24.0-44.0); MEAN CORPUSCULAR HEMOGLOBIN 29.5 pg (27.0-33.0); MEAN CORPUSCULAR HGB CONC 33.9 g/dl (32.0-36.5); MEAN CORPUSCULAR VOLUME 87.2 fl (80.0-96.0); MONO # 0.3 10^3/uL (0.0-0.8); MONO % 8.7 % (0.0-5.0); NEUTROPHILS # 1.7 10^3/uL (1.5-8.5); NEUTROPHILS % 45.2 % (36.0-66.0); PLATELET COUNT, AUTOMATED 171 10^3/uL (150-450); RED BLOOD COUNT 4.37 10^6/uL (4.00-5.40); WHITE BLOOD COUNT 3.8 10^3/uL (4.0-10.0)
[2019-04-04 12:30] LABS: INR 1.13; PROTHROMBIN TIME 14.3 SECONDS (11.8-14.0)
[2019-04-04 12:31] LABS: PARTIAL THROMBOPLASTIN TIME 30.4 SECONDS (25.0-38.4)
[2019-04-04 12:38] LABS: ALBUMIN 3.8 GM/DL (3.2-5.2); ALT/SGPT 20 U/L (12-78); BILIRUBIN,TOTAL 0.9 MG/DL (0.2-1.0); BLOOD UREA NITROGEN 9 MG/DL (7-18); CALCIUM LEVEL 8.7 MG/DL (8.5-10.1); CARBON DIOXIDE LEVEL 31 MEQ/L (21-32); CHLORIDE LEVEL 106 MEQ/L (98-107); CREATININE FOR GFR 0.66 MG/DL (0.55-1.30); GLOMERULAR FILTRATION RATE > 60.0 (>60); GLUCOSE, FASTING 85 MG/DL (70-100); POTASSIUM SERUM 3.9 MEQ/L (3.5-5.1); SODIUM LEVEL 140 MEQ/L (136-145); TOTAL PROTEIN 6.5 GM/DL (6.4-8.2)
== END ==
LOC: M LAB 11:06
DX: G93.5 Compression of brain (principal)

== ENCOUNTER → 2019-07-01 | Outpatient (REF) | payer OTHER ==
[2019-07-01 17:08] LABS: APPEARANCE, URINE CLOUDY (CLEAR); BACTERIA, URINE AUTO 2+ (NEGATIVE); BILIRUBIN, URINE AUTO NEGATIVE (NEGATIVE); BLOOD, URINE BLOOD 2+ (NEGATIVE); COLOR, URINE AMBER (YELLOW); GLUCOSE, URINE (UA) AUTO NEGATIVE (NEGATIVE); KETONE, URINE AUTO TRACE mg/dL (NEGATIVE); LEUKOCYTE ESTERASE, URINE AUTO 3+ (NEGATIVE); MUCUS, URINE LARGE (NEGATIVE); NITRITE, URINE AUTO NEGATIVE (NEGATIVE); PROTEIN, URINE AUTO 2+ mg/dL (NEGATIVE); RBC, URINE AUTO 154 /HPF (0-3); SPECIFIC GRAVITY URINE AUTO 1.028 (1.002-1.035); SQUAMOUS EPITHELIAL CELL UR AU 6 /HPF (0-6); WBC, URINE AUTO TNTC /HPF (0-3)
== END ==
LOC: M LAB REF 16:24
PROVIDERS: ATTEND Physician Assistant Medical
DX: N39.0 Urinary tract infection, site not specified (principal)

== ENCOUNTER 2020-02-08 19:09 | Emergency (ER) | payer BC, MEDICAID, OTHER ==
[~2020-02-08] VITALS: Ht 165.1 cm; Wt 72.6 kg
[2020-02-08] MEDS ORDERED: ADDE15CA3 PO (19:22)
[2020-02-08] MEDS ORDERED: ADDE30CA3 PO (19:22)
[2020-02-08] MEDS ORDERED: BACT800T5 PO (20:38)
[2020-02-08] MEDS ORDERED: BACTRIM 160MG/800MG DS TAB PO ONE (20:45)
[2020-02-08 20:54] VITALS: BP 119/63
== END 2020-02-08 20:53 | disposition home or self-care (01) ==
LOC: EEVIPCON 19:09 → M ED 19:09
DX: L03.032 Cellulitis of left toe (principal); F17.200 Nicotine dependence, unspecified, uncomplicated; Z79.51 Long term (current) use of inhaled steroids; Z79.899 Other long term (current) drug therapy

== ENCOUNTER 2020-02-28 17:41 | Emergency (ER) | payer OTHER ==
[~2020-02-28] VITALS: Ht 165.1 cm; Wt 74.3 kg
[~2020-02-28 17:41] MED LIST changes: +ADDE15CA3 PO; +BACT800T5 PO
[2020-02-28] MEDS ORDERED: NS 1,000 ML IV ONE (18:45)
[2020-02-28] MEDS ORDERED: ISOVUE-370 76% 100ML VIAL As Ordered ONE (19:33)
[2020-02-28 19:38] LABS: HEMATOCRIT 38.5 % (36.0-47.0); HEMOGLOBIN 12.5 g/dl (12.0-15.5); MEAN CORPUSCULAR HEMOGLOBIN 28.1 pg (27.0-33.0); MEAN CORPUSCULAR HGB CONC 32.5 g/dl (32.0-36.5); MEAN CORPUSCULAR VOLUME 86.5 fl (80.0-96.0); PLATELET COUNT, AUTOMATED 173 10^3/uL (150-450); RED BLOOD COUNT 4.45 10^6/uL (4.00-5.40); WHITE BLOOD COUNT 5.7 10^3/uL (4.0-10.0)
[2020-02-28 20:01] LABS: ALBUMIN 4.1 GM/DL (3.2-5.2); BILIRUBIN,DIRECT 0.2 MG/DL (0.0-0.2); BILIRUBIN,TOTAL 0.8 MG/DL (0.2-1.0); C REACTIVE PROTEIN QUANTITATIV 0.5 MG/DL (0.00-0.30); TOTAL PROTEIN 7.3 GM/DL (6.4-8.2)
[2020-02-28 20:07] LABS: ERYTHROCYTE SEDIMENTATION RATE 10 mm/hr (0-20)
[2020-02-28 20:17] LABS: ATYPICAL LYMPH 1 % (0-5); BASOPHILS 1 % (0-1); EOSINOPHILS 2 % (0-3); LYMPHOCYTES 40 % (16-44); MONOCYTES 8 % (0-5); NEUTROPHILS 48 % (28-66); PLATELET ESTIMATE NORMAL (NORMAL)
--- NOTE | 2020-02-28 20:39 | REPVR ---
PROCEDURE INFORMATION: Exam: CT Neck With Contrast Exam date and time: 02/28/2020 7:48 PM Age: 29 years old Clinical indication: Abscess, cutaneous; Additional info: Abscess on face/swelling right neck ? more abscess TECHNIQUE: Imaging protocol: Computed tomography images of the neck with intravenous contrast. Radiation optimization: All CT scans at this facility use at least one of these dose optimization techniques: automated exposure control; mA and/or kV adjustment per patient size (includes targeted exams where dose is matched to clinical indication); or iterative reconstruction. Contrast material: ISOVUE 370; Contrast volume: 75 ml; Contrast route: INTRAVENOUS (IV); COMPARISON: Thyroid, ST head+neck US 07/15/2015 1:03 PM FINDINGS: Brain: Evidence of prior posterior cranial fossa decompression. Nasopharynx: Unremarkable. Oropharynx: Unremarkable. No significant tonsillar enlargement. Hypopharynx: Unremarkable. Larynx: Unremarkable. Normal epiglottis. Retropharyngeal space: Unremarkable. Submandibular/Parotid glands: Normal. Glands are normal in size. Thyroid: Normal. No enlarged or calcified nodules. Lymph nodes: Unremarkable. No lymphadenopathy. Trachea: Visualized trachea is unremarkable. Lungs: Unremarkable as visualized. Bones/joints: Unremarkable. No acute fracture. Soft tissues: Unremarkable. No significant soft tissue swelling. IMPRESSION: No acute abnormality. Electronically signed by: Gianluca Orozco On 02/28/2020 20:39:00 PM
[2020-02-28] MEDS ORDERED: BACT800T5 PO (20:50)
[2020-02-28] MEDS ORDERED: CLINDAMYCIN 300 MG in IV 1 EA IV ONE (21:00)
[2020-02-28 21:37] VITALS: BP 122/68
== END 2020-02-28 22:08 | disposition home or self-care (01) ==
LOC: M ED 17:41
DX: L03.211 Cellulitis of face (principal); B95.62 Methicillin resistant Staphylococcus aureus infection as the cause of diseases classified elsewhere; J45.909 Unspecified asthma, uncomplicated; F19.11 Other psychoactive substance abuse, in remission; F17.210 Nicotine dependence, cigarettes, uncomplicated; Z79.899 Other long term (current) drug therapy
CPT/HCPCS: 70491; 80047; 80076; 83605; 84702; 85025; 85652; 86140; 87040; 96361; 96365; 99284; Q9967

== ENCOUNTER → 2020-03-22 | Outpatient (REF) | payer OTHER ==
[2020-03-22 14:35] LABS: FREE T4 1.23 NG/DL (0.76-1.46); THYROID STIMULATING HORMONE 0.915 uIU/ML (0.358-3.740)
== END ==
LOC: M SFHCPLAZ 12:10
PROVIDERS: ATTEND Internal Medicine Infectious Disease
DX: L81.8 Other specified disorders of pigmentation (principal); E04.1 Nontoxic single thyroid nodule

== ENCOUNTER → 2020-07-12 | Outpatient (CLI) | payer OTHER ==
[2020-07-12 17:19] LABS: HEMATOCRIT 35.5 % (36.0-47.0); MEAN CORPUSCULAR HEMOGLOBIN 28.6 pg (27.0-33.0); MEAN CORPUSCULAR HGB CONC 33.8 g/dl (32.0-36.5); MEAN CORPUSCULAR VOLUME 84.7 fl (80.0-96.0); PLATELET COUNT, AUTOMATED 168 10^3/uL (150-450); RED BLOOD COUNT 4.19 10^6/uL (4.00-5.40); WHITE BLOOD COUNT 5.6 10^3/uL (4.0-10.0)
[2020-07-12 17:24] LABS: INR 0.96
[2020-07-12 17:25] LABS: PARTIAL THROMBOPLASTIN TIME 27.7 SECONDS (24.2-38.5)
[2020-07-12 17:43] LABS: ALBUMIN 3.6 GM/DL (3.2-5.2); ALT/SGPT 18 U/L (12-78); BILIRUBIN,TOTAL 0.5 MG/DL (0.2-1.0); BLOOD UREA NITROGEN 7 MG/DL (7-18); CALCIUM LEVEL 8.7 MG/DL (8.5-10.1); CARBON DIOXIDE LEVEL 31 MEQ/L (21-32); CHLORIDE LEVEL 105 MEQ/L (98-107); GLOMERULAR FILTRATION RATE > 60.0 (>60); GLUCOSE, FASTING 93 MG/DL (70-100); POTASSIUM SERUM 3.5 MEQ/L (3.5-5.1); SODIUM LEVEL 140 MEQ/L (136-145); TOTAL PROTEIN 6.4 GM/DL (6.4-8.2)
[2020-07-12 19:58] LABS: ATYPICAL LYMPH 6 % (0-5); EOSINOPHILS 3 % (0-3); LYMPHOCYTES 39 % (16-44); MONOCYTES 3 % (0-5); NEUTROPHILS 49 % (28-66)
[2020-07-12 19:59] LABS: PLATELET ESTIMATE NORMAL (NORMAL)
== END ==
LOC: M LAB 15:41
PROVIDERS: ATTEND Physician Assistant Medical
DX: Z01.818 Encounter for other preprocedural examination (principal); I67.1 Cerebral aneurysm, nonruptured

== ENCOUNTER → 2021-01-21 | Outpatient (CLI) | payer OTHER | LOC: M LABSMTC 10:51 | PROVIDERS: ATTEND Pediatrics | DX: Z11.52 Encounter for screening for COVID-19 (principal) ==

== ENCOUNTER → 2021-02-18 | Outpatient (CLI) | payer OTHER | LOC: M LABSMTC 11:08 | PROVIDERS: ATTEND Family Medicine | DX: Z20.822 Contact with and (suspected) exposure to COVID-19 (principal) ==

== ENCOUNTER → 2022-09-14 | Outpatient (REF) | payer OTHER ==
[~2022-09-14] MED LIST changes: +AMPH1CAP16 PO; +ONDA4TAB6 PO
== END ==
LOC: M LAB REF 17:06
PROVIDERS: ATTEND Physician Assistant
DX: J02.9 Acute pharyngitis, unspecified (principal)

== ENCOUNTER → 2023-07-18 | Outpatient (CLI) | payer OTHER ==
[2023-07-18 14:06] LABS: BASO % 0.9 % (0.0-1.0); EOS # 0.2 10^3/uL (0.0-0.5); HEMATOCRIT 38.9 % (36.0-47.0); HEMOGLOBIN 12.9 g/dl (12.0-15.5); LYMPH # 2.3 10^3/uL (1.5-5.0); LYMPH % 49.3 % (24.0-44.0); MEAN CORPUSCULAR HEMOGLOBIN 28.3 pg (27.0-33.0); MEAN CORPUSCULAR HGB CONC 33.2 g/dl (32.0-36.5); MEAN CORPUSCULAR VOLUME 85.3 fl (80.0-96.0); MONO # 0.6 10^3/uL (0.0-0.8); MONO % 12.2 % (2.0-8.0); NEUTROPHILS # 1.5 10^3/uL (1.5-8.5); NEUTROPHILS % 32.4 % (36.0-66.0); PLATELET COUNT, AUTOMATED 175 10^3/uL (150-450); RED BLOOD COUNT 4.56 10^6/uL (4.00-5.40); WHITE BLOOD COUNT 4.6 10^3/uL (4.0-10.0)
[2023-07-18 14:34] LABS: IRON (FE) 59 UG/DL (50-170)
[2023-07-18 14:36] LABS: ALBUMIN 3.8 G/DL (3.2-5.2); ALKALINE PHOSPHATASE 65 U/L (46-116); ALT/SGPT 18 U/L (7.0-40); AST/SGOT 13 U/L (<34); BILIRUBIN,TOTAL 0.9 MG/DL (0.3-1.2); BLOOD UREA NITROGEN 9 MG/DL (9-23); CALCIUM LEVEL 8.7 MG/DL (8.5-10.1); CARBON DIOXIDE LEVEL 29 MMOL/L (20-31); CHLORIDE LEVEL 107 MMOL/L (98-107); CHOLESTEROL LEVEL 137 MG/DL (<200); CHOLESTEROL RISK RATIO 2.73 (<5); CREATININE FOR GFR 0.55 MG/DL (0.55-1.30); GLOMERULAR FILTRATION RATE > 60.0 (>60); GLUCOSE, FASTING 92 MG/DL (60-100); HDL CHOLESTEROL 50.1 MG/DL (>40); LDL CHOLESTEROL 73.7 MG/DL (<100); NON-HDL-C 86.9 MG/DL; POTASSIUM SERUM 3.8 MMOL/L (3.5-5.1); SODIUM LEVEL 141 MMOL/L (136-145); TOTAL PROTEIN 6.6 G/DL (5.7-8.2); TRIGLYCERIDES LEVEL 66 MG/DL (<150)
[2023-07-18 14:38] LABS: FERRITIN 11.4 NG/ML (7.3-270.7)
[2023-07-18 14:39] LABS: TOTAL 25(OH) VITAMIN D 7.9 NG/ML (20.0-100.0)
[2023-07-18 14:40] LABS: FOLATE 11.12 NG/ML (>5.4)
[2023-07-18 14:41] LABS: FREE T4 1.12 NG/DL (0.89-1.76)
[2023-07-18 18:46] LABS: HEMOGLOBIN A1c 4.7 % (4.0-6.0)
== END ==
LOC: M PLALAB 11:24
PROVIDERS: ATTEND Registered Nurse Psychiatric/Mental Health
DX: Z79.899 Other long term (current) drug therapy (principal)

== ENCOUNTER 2024-04-23 19:15 | Emergency (ER) | payer OTHER ==
[~2024-04-23] VITALS: Ht 162.6 cm; Wt 84.8 kg
[~2024-04-23 19:15] MED LIST changes: +GABA-1490 PO; -GABA600T4 PO; +ONDA-282 PO; -ONDA4TAB6 PO
[2024-04-23 19:25] VITALS: BP 147/74; TEMP 98.3; O2SAT 97
== END 2024-04-23 21:35 | disposition left against medical advice (07) ==
LOC: M ED 19:15
DX: Z53.21 Procedure and treatment not carried out due to patient leaving prior to being seen by health care provider (principal)

== ENCOUNTER 2024-12-12 20:39 | Emergency (ER) | payer OTHER ==
[~2024-12-12] VITALS: Ht 162.6 cm; Wt 85.5 kg
[2024-12-12 23:10] VITALS: BP 122/75; TEMP 97.6; O2SAT 100
[2024-12-13] MEDS: DERMABOND TOPICAL SKIN ADHESIVE TOP ONE (01:10)
[2024-12-13] MEDS: TETANUS/DIPHTH/ACEL. PERTUSSIS 0.5 ML SYR IM.IMMUN ONE (01:26)
== END 2024-12-13 01:36 | disposition home or self-care (01) ==
LOC: M ED 20:39
DX: S91.011A Laceration without foreign body, right ankle, initial encounter (principal); W25.XXXA Contact with sharp glass, initial encounter; Y92.009 Unspecified place in unspecified non-institutional (private) residence as the place of occurrence of the external cause; Y93.9 Activity, unspecified; Y99.9 Unspecified external cause status; F17.200 Nicotine dependence, unspecified, uncomplicated; Z79.899 Other long term (current) drug therapy